=== PATIENT | male | born 1940 | race Caucasian/White ===

== ENCOUNTER → 2018-01-02 | Day surgery (SDC) | payer OTHER, MEDICARE ==
[~2018-01-02] VITALS: Ht 190.5 cm; Wt 88.5 kg
[~2018-01-02] MED LIST: COLCRYS0.6 M1 PO; INDOMETHACIN25 M1 PO; INDOMETHACIN50 MG PO; LECITHIN1200 M2 PO; MEDROL DOSEPAK1 PAC PO; METOPROLOL TART50 M1 PO; MULTI-DAY VITA1 EACH PO; PREDNISONE20 M1 PO; ULTRAM50 M1 PO; VITAMIN B-121000 MC3 PO; VITAMIN C500 M6 PO; VITAMIN D31000 UNI1 PO; VITAMIN E100 UNI2 PO
--- NOTE | 2018-01-02 13:30 | Operative Report ---
Operative/Inv Procedure Report Surgery Date: 01/02/18 Name of Procedure: Robotic assisted laparoscopic left inguinal hernia repair with mesh Pre-Operative Diagnosis: Left inguinal hernia Post-Operative Diagnosis: Same Estimated Blood Loss: scant Surgeon/Med Admin: Humberto GARCIA,Sabino Howard/Annabella DAILY Anesthesia: general endotracheal tube Implants: Pariah Rustam Pro runway model Operative/Procedure Note Note: After consent patient brought to the operating room laid supine. General anesthesia was obtained and his abdomen was prepped and draped. Skin was observed local anesthesia at Luciano's point and a transverse incision made sharply. Access the peritoneum was gained percutaneously using an 8 mm optical trocar. Pneumoperitoneum was achieved. 2 more 8 mm ports were placed under direct vision in the transverse plane. The patient is placed in Trendelenburg, robot docked, targeted and instruments placed under direct vision. I then broke scrub and went to the console. There is a large indirect hernia, left-sided. There adhesions of omentum to the midline which appeared to be related to prior history of diverticulitis. These were taken down with cautery. I then developed a preperitoneal flap by taking down the peritoneum just superior to the defect. We then developed the preperitoneal plane with scissor cautery. There is a large indirect sac which was dissected free from the cord structures and delivered. This was performed with cautery and blunt dissection. There is an indirect cord lipoma which is also reduced and delivered. Medially we dissected down to the pubic tubercle and freed up to proceed ligament. There is a moderate sized direct hernia as well composed of fatty tissue. Was taken down with cautery and delivered inferiorly. Once I was happy with the dissection, a 10 x 15 cm piece of parietex pro runway model was placed in the cavity. Was placed over the defects and unraveled and self adhered to the fascial tissues. Once I was happy with the placement of mesh the peritoneal flap was closed with a running absorbable 2-0V lock suture. Sutures then removed and passed off the field. The ports were delivered and passed off the field. Skin incisions closed with 4 -0 Vicryl. Steri-Strips and sterile dressing are applied. Sponge and needle counts are correct. Findings: Tamra CC: Windy GARCIA,Grace
== END ==
LOC: STS 01:26
DX: K40.90 Unilateral inguinal hernia, without obstruction or gangrene, not specified as recurrent (principal); I10 Essential (primary) hypertension; M10.9 Gout, unspecified; M19.90 Unspecified osteoarthritis, unspecified site
CPT/HCPCS: C1781; J0131; J0690; J2250; J3490